=== PATIENT | male | born 1950 | race Caucasian/White ===

== ENCOUNTER → 2023-04-13 | Outpatient (CLI) | payer MEDICARE, MEDICAID ==
[2023-04-14 09:16] LABS: ANION GAP 2.8; CALCIUM 8.8 mg/dL (8.4-10.5); CARBON DIOXIDE 42.1 mmol/L (20.0-32); CREATININE SERUM 1.21 mg/dL (0.59-1.40); EST GFR, NON-AA 58.9 (>/=60); POTASSIUM 3.9 mmol/L (3.6-5.2)
== END | disposition home or self-care (01) ==
LOC: NPLAB 16:20
PROVIDERS: ATTEND Internal Medicine
DX: R33.9 Retention of urine, unspecified (principal)
CPT/HCPCS: 36415; 80048; 83880

== ENCOUNTER → 2023-09-15 | Outpatient (CLI) | payer MEDICARE, MEDICAID | END | disposition home or self-care (01) | LOC: NPLAB 06:52 | PROVIDERS: ATTEND Internal Medicine | DX: R33.9 Retention of urine, unspecified (principal) | CPT/HCPCS: 36415; 83880 ==

== ENCOUNTER → 2023-09-20 | Outpatient (CLI) | payer MEDICARE, MEDICAID | END | disposition home or self-care (01) | LOC: RAD 14:12 | PROVIDERS: ATTEND Internal Medicine | DX: I08.1 Rheumatic disorders of both mitral and tricuspid valves (principal); J96.91 Respiratory failure, unspecified with hypoxia | CPT/HCPCS: 93306 ==